=== PATIENT | female | born 1955 | race Caucasian/White ===

== ENCOUNTER 2017-01-28 13:22 | Outpatient (CLI) | payer MEDICARE, OTHER ==
--- NOTE | 2017-01-29 07:16 | Mammography Report ---
DIGITAL BILATERAL SCREENING MAMMOGRAM: 01/28/2017 CLINICAL HISTORY: Family history indicates a cousin with breast cancer at age 45. Patient has no hi story of breast surgeries. COMPARISON: 09/01/2012, 09/09/2013, 10/04/2014, 10/20/2014, 10/24/2015. TECHNIQUE: Craniocaudad and oblique lateral views of each breast were obtained with Hologic Full Fie ld digital mammography. FINDINGS: Breast parenchymal pattern consists of scattered fibroglandular densities. No significant clusters of calcification are seen. No significant masses are noted. No change is no paul. IMPRESSION: BREASTS APPEAR RADIOGRAPHICALLY BENIGN. BIRADS CATEGORY 1 - NEGATIVE. RECOMMENDATIONS: Annual bilateral screening mammography. STANDARD QUALIFYING STATEMENTS 1. This examination was reviewed with the aid of Computer-Aided Detection (CAD). 2. A negative or benign imaging report should not delay biopsy if clinically suspicious findings are present. Consider surgical consultation if warranted. More than 5% of cancers are not identified by i maging. 3. Dense breasts may obscure an underlying neoplasm. JOB #: [id number] EXT JOB #:[id number]
== END 2017-01-28 13:23 | disposition home or self-care (01) ==
LOC: DI.N 13:22
PROVIDERS: ATTEND Obstetrics & Gynecology
DX: Z12.31 Encounter for screening mammogram for malignant neoplasm of breast (principal)
CPT/HCPCS: 77067

== ENCOUNTER 2018-03-10 13:33 | Outpatient (CLI) | payer MEDICARE, OTHER ==
--- NOTE | 2018-03-13 10:33 | Mammography Report ---
Procedure Date: 03/10/2018 Accession Number: [id number] / [id number] Procedure: MGN - Screening Mammo Dig Bilat CPT Code: FULL RESULT: EXAM: Screening Mammo Dig Bilat DATE: 03/10/2018 1:54 PM CLINICAL HISTORY: 62 year-old nulliparous female with family history of breast cancer in a cousin at the age of 45 presents for screening mammography. TECHNIQUE: Bilateral CC and MLO views were obtained. COMPARISON: 01/28/2017, 10/24/2015, 10/04/2014, 09/09/2013. FINDINGS: The breasts demonstrate scattered fibroglandular densities bilaterally. Typically benign vascular calcifications are seen bilaterally. Typically benign large rodlike calcifications are seen in the right breast. Typically benign coarse calcifications are seen in the left breast. No suspicious masses, clustered microcalcifications, or regions of architectural distortion are identified. IMPRESSION: Benign findings RECOMMENDATION: Routine annual screening unless otherwise clinically indicated. BIRADS CATEGORY 2: Benign findings STANDARD QUALIFYING STATEMENTS: 1. This examination was reviewed with the aid of Computer-Aided Detection (CAD). 2. A negative or benign imaging report should not delay biopsy if clinically suspicious findings are present. Consider surgical consultation if warrented. More than 5% of cancers are not identified by imaging. 3. Dense breasts may obscure an underlying neoplasm.
== END 2018-03-10 13:34 | disposition home or self-care (01) ==
LOC: DI.N 13:33
PROVIDERS: ATTEND Obstetrics & Gynecology
DX: Z12.31 Encounter for screening mammogram for malignant neoplasm of breast (principal); Z80.3 Family history of malignant neoplasm of breast
CPT/HCPCS: 77067

== ENCOUNTER 2018-03-25 15:36 | Emergency (ER) | payer MEDICARE, OTHER ==
--- NOTE | 2018-03-25 16:56 | ED Physician Documentation ---
PD HPI FOCAL NEURO - Stated complaint Stated Complaint: VISION CHANGE,FACE NUMBNESS,R HAND NUMB,UNSTEADY - Chief complaint Chief Complaint: Neuro - History obtained from History obtained from: Patient, Family - History of Present Illness Timing - onset: Other (This is a 62-year-old woman who is 11 years out from renal transplant and has chronic issues with her central vision due to diabetic retinopathy. For the last several months she has had intermittent problems with her right peripheral vision. And then for the last couple of weeks she has had intermittent numbness in the right perioral area and for the last week or so she has had intermittent numbness of the right hand and feels clumsy with the right hand. There is no significant headache with it.) Review of Systems Constitutional: denies: Fever, Chills Eyes: reports: Loss of vision (chronic and acute). 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 : None HEENT: Chronic vision loss Psych: None Musculoskeletal: None Derm: Rosacea, Other - Past Surgical History Past Surgical History: Yes HEENT: Tonsil/Adenoidectomy - Allergies Allergies/Adverse Reactions: Allergies Allergy/AdvReac Type Severity Reaction Status Date / Time No Known Drug Allergies Allergy Verified 03/25/18 15:52 - Social History Does the pt smoke?: No Smoking Status: Never smoker Does the pt drink ETOH?: No Does the pt have substance abuse?: No - Immunizations Immunizations are current?: Yes PD ED PE NORMAL - Vitals Vital signs reviewed: Yes - General General: Alert and oriented X 3, No acute distress - HEENT HEENT: PERRL, EOMI - Neck Neck: Supple, no meningeal sign, No bony TTP - Cardiac Cardiac: RRR, No murmur - Respiratory Respiratory: No respiratory distress, Clear bilaterally - Abdomen Abdomen: Normal bowel sounds, Soft, Non tender - Neuro Neuro: Alert and oriented X 3, Normal speech - Psych Psych: Normal mood, Normal affect NIHSS - Time Time: 16:45 - Level of Consciousness Level of consciousness: (0) Alert, Keenly responsive LOC Questions: (0) Answers both Q's correct LOC Commands: (0) Performs both correctly - Gaze Best Gaze: (0) Normal - Visual Visual: (0) No loss - Facial Palsy Facial Palsy: (0) Normal, symmetrical movement - Motor Arms (both separate) Motor Arm (right): (0) No drift Motor Arm (left): (0) No drift - Motor Legs (both separate) Motor Leg (right): (0) No drift Motor Leg (left): (0) No drift - Limb Ataxia Limb Ataxia: (0) Absent (She also has a lot of trouble with finger to nose testing due to her poor central vision, but on recheck out and touching her nose she does fine.) - Sensory Sensory: (0) Normal - Best Language Best Language: (0) No aphasia - Dysarthria Dysarthria: (0) Normal - Extinction and Inattention (formally neg Extinction and inattention: (0) No abnormality - Total Score/Results Total Score/Result: 0 Results - Vitals Vitals: Vital Signs - 24 hr 03/25/18 15:47 Temperature 36.3 C L Heart Rate 85 Respiratory 16 Rate Blood Pressure 148/75 H O2 Saturation 100 Oxygen O2 Source Room air - Rads (name of study) CT Head Radiology: EMP read contemporaneously (Normal) PD MEDICAL DECISION MAKING - ED course ED course: She presents with subacute strokelike symptoms. No MRI available now, but since symptoms are subacute a CT was done and I spoke with Dr. Medina environmental services supervisor for his physician who will arrange for her to schedule an outpatient MRI. - Sepsis Event Vital Signs: Vital Signs - 24 hr 03/25/18 15:47 Temperature 36.3 C L Heart Rate 85 Respiratory 16 Rate Blood Pressure 148/75 H O2 Saturation 100 Oxygen O2 Source Room air Departure - Departure Disposition: 01 Home, Self Care Clinical Impression: Stroke-like symptoms Hypertension Qualifiers: Hypertension type: essential hypertension Qualified Code(s): I10 - Essential ( primary) hypertension Condition: Good Record reviewed to determine appropriate education?: Yes Comments: KATIE I SPOKE WITH DR MEDINA- DR SONI'S PARTNER, THEY SHOULD BE CONTACTING YOU TO ARRANGE FOR MRI RETURN IF WORSE OR FOR NEW SYMPTOMS.
--- NOTE | 2018-03-25 17:28 | CT Report ---
Procedure Date: 03/25/2018 Accession Number: [id number] / [id number] Procedure: CT - Head W/O CPT Code: FULL RESULT: EXAM: CT HEAD EXAM DATE: 03/25/2018 05:10 PM. CLINICAL HISTORY: Right-sided facial and arm numbness. COMPARISON: None. TECHNIQUE: Multiaxial CT images were obtained from the foramen magnum to the vertex. Reformats: Sagittal and coronal. IV contrast: None. In accordance with CT protocol optimization, one or more of the following dose reduction techniques were utilized for this exam: automated exposure control, adjustment of mA and/or KV based on patient size, or use of iterative reconstructive technique. FINDINGS: Parenchyma: No intraparenchymal hemorrhage. No evidence of mass, midline shift, or CT findings of infarction. Harris-white differentiation is distinct. Extraaxial Spaces: Normal for age. No subdural or epidural collections identified. Ventricles: Normal in size and position. Sinuses and Orbits: Imaged paranasal sinuses, orbits, and mastoids show no significant abnormality. Bones: No evidence of fracture or calvarial defect. Other: None. IMPRESSION: Normal head CT. RADIA
[2018-03-25 17:58] VITALS: BP 140/80
== END 2018-03-25 17:57 | disposition home or self-care (01) ==
LOC: ED 15:36
DX: I10 Essential (primary) hypertension (principal); R20.0 Anesthesia of skin; E11.319 Type 2 diabetes mellitus with unspecified diabetic retinopathy without macular edema; Z94.0 Kidney transplant status
CPT/HCPCS: 70450; 99283

== ENCOUNTER 2018-05-12 12:53 | Outpatient (CLI) | payer MEDICARE, OTHER ==
--- NOTE | 2018-05-13 10:02 | Ultrasound Report ---
Reason: TRANSIENT ISCHEMIC ATTACH Procedure Date: 05/12/2018 Accession Number: [id number] / [id number] Procedure: US - Carotid Doppler Complete CPT Code: FULL RESULT: EXAM: BILATERAL CAROTID AND VERTEBRAL ARTERY DUPLEX DOPPLER ULTRASOUND: EXAM DATE: 05/12/2018 02:38 PM CLINICAL HISTORY: Transient ischemic attach. COMPARISON: None. TECHNIQUE: Grayscale imaging, color Doppler, and duplex spectral Doppler were used to evaluate the carotid and vertebral arteries bilaterally. Static images were obtained. FINDINGS: Subjectively there is echogenic atherosclerosis within the left internal carotid artery and bulb which reaches up to 70% on grayscale matching the finding of a 2.5 ICA/CCA ratio and corroborated on color Doppler. The right carotid system similarly demonstrates an elevated ICA/CCA ratio of 3.1 with subjective grayscale findings of focal echogenic plaque reaching approximately 50% and in line with the visual assessment on color Doppler. Brisk systolic upstrokes are preserved in the distal internal carotid arteries bilaterally. Normal antegrade flow is present in bilateral vertebral arteries. VELOCITIES (cm/sec): Right CCA mid: PSV 52 cm/sec CCA dist: PSV 48 cm/sec ICA prox: PSV 141 cm/sec, EDV 34 cm/sec ICA mid: PSV 149 cm/sec, EDV 32 cm/sec ICA dist: PSV 99 cm/sec, EDV 28 cm/sec ECA: PSV 441 cm/sec Vert: PSV 58 cm/sec ICA/CCA: 3.10 Left CCA mid: PSV 86 cm/sec CCA dist: PSV 64 cm/sec ICA prox: PSV 160 cm/sec, EDV 44 cm/sec ICA mid: PSV 94 cm/sec, EDV 20 cm/sec ICA dist: PSV 100 cm/sec, EDV 24 cm/sec ECA: PSV 198 cm/sec Vert: PSV 54 cm/sec ICA/CCA: 2.5 ICA diameter stenosis: Right: 50-69% by velocity and <70% by NASCET criteria. Left: 50-69% by velocity and <70% by NASCET criteria. IMPRESSION: 1. Subjectively significant predominantly echogenic bilateral carotid artery plaquing. 2. Right carotid artery stenosis of between 50 and 69%. 3. Left carotid artery stenosis of between 50 and 69%. 4. Normal antegrade flow is present in bilateral vertebral arteries. General Recommendations: Stenosis =50% ICA - Follow-up ultrasound 6-12 months Stenosis <50% ICA - High Risk Patient with plaque - Follow-up ultrasound 1-2 years Normal Study but High Risk Patient - Follow-up ultrasound 3-5 years Management recommendations and diagnostic criteria are based on current IAC endorsed standards in Carotid Artery Stenosis: Grayscale and Doppler Ultrasound Diagnosis. Validated velocity measurements with angiographic measurements and velocity criteria are extrapolated from diameter data as defined by the Society of Radiologists in Ultrasound Consensus Conference Radiology 2003; 229;340-346. RADIA
== END 2018-05-12 12:54 | disposition home or self-care (01) ==
LOC: DI 12:53
PROVIDERS: ATTEND Internal Medicine Nephrology
DX: G45.9 Transient cerebral ischemic attack, unspecified (principal)
CPT/HCPCS: 93880

== ENCOUNTER 2018-06-03 10:10 | Outpatient (CLI) | payer MEDICARE, OTHER ==
[2018-06-03 10:38] LABS: CREATININE 2.5 mg/dL (0.4-1.0)
== END 2018-06-03 10:11 | disposition home or self-care (01) ==
LOC: LAB 10:10
PROVIDERS: ATTEND Internal Medicine Nephrology
DX: N05.9 Unspecified nephritic syndrome with unspecified morphologic changes (principal)
CPT/HCPCS: 36415; 82565

== ENCOUNTER 2018-07-01 13:15 | Outpatient (CLI) | payer MEDICARE, OTHER ==
--- NOTE | 2018-07-03 08:11 | DEXA Report ---
Reason: POSTMENOPAUSAL Procedure Date: 07/01/2018 Accession Number: [id number] / [id number] Procedure: DEX - Dexa Spine and/or Hip CPT Code: FULL RESULT: EXAM: Dexa Spine and/or Hip DATE: 07/01/2018 2:16 PM CLINICAL HISTORY: POSTMENOPAUSAL TECHNIQUE: Dual energy x-ray absorptiometry (DXA) was performed on a Synerscope System. Regions measured are the AP Spine, femoral neck, and if needed forearm. COMPARISON: None. In accordance with the International Society for Clinical Densitometry (ISCD) guidelines, data from previous exams may be reanalyzed using current recommendations and techniques. This is done to allow a more accurate basis for comparison with the current study. FINDINGS: The data for the lumbar spine is as follows: BMD (g/cm/cm) T-SCORE Z-SCORE REGION L1 0.840 -2.4 -1.3 L2 1.043 -1.3 -0.2 L3 1.055 -1.2 -0.1 L4 0.999 -1.7 -0.5 TOTAL 0.990 -1.6 -0.4 NOTE: All evaluable vertebrae are used for classification The data for the hip is as follows: BMD (g/cm/cm) T-SCORE Z-SCORE REGION Neck 0.696 -2.5 -1.3 TOTAL 0.768 -1.9 -1.0 NOTE: The femoral neck or total proximal femur, whichever is lowest, is used for classification. * Denotes significant change at the 95% confidence level. Denotes dissimilar scan types or analysis methods. IMPRESSION: THE WHO CLASSIFICATION BASED ON THE INTERNATIONAL REFERENCE STANDARD IS OSTEOPOROSIS. THE FRACTURE RISK IS HIGH. RECOMMENDATION: Patients with diagnosis of osteoporosis or osteopenia should have regular bone mineral density assessment. For those eligible for Medicare, routine testing is allowed once every 2 years. Testing frequency can be increased for patients who have rapidly progressing disease or for those who are receiving medical therapy to restore bone mass. COMMENT: World Health Organization (WHO) definitions for osteoporosis and osteopenia: NORMAL BMD: T-score at -1.0 or higher, fracture risk is low OSTEOPENIA BMD: T-score between -1.0 and -2.5, fracture risk is increased. OSTEOPOROSIS BMD: T-score at -2.5 or lower, fracture risk is high. National Osteoporosis Foundation recommends: 1. Obtain adequate dietary calcium (at least 1200 mg per day) and vitamin D (400-800 international units per day). 2. Participate, as appropriate, in regular weightbearing and muscle-strengthening exercise. 3. Avoid tobacco use and reduce alcohol and caffeine intake. 4. For more detailed information see the website at www.NOF.org.
== END 2018-07-01 13:16 | disposition home or self-care (01) ==
LOC: DI 13:15
PROVIDERS: ATTEND Internal Medicine
DX: Z13.820 Encounter for screening for osteoporosis (principal); M81.0 Age-related osteoporosis without current pathological fracture; N95.8 Other specified menopausal and perimenopausal disorders; Z79.52 Long term (current) use of systemic steroids
CPT/HCPCS: 77080

== ENCOUNTER 2018-07-10 13:35 | Outpatient (CLI) | payer MEDICARE, OTHER | END 2018-07-10 13:36 | disposition home or self-care (01) | LOC: NS 13:35 | PROVIDERS: ATTEND Internal Medicine | DX: Z71.3 Dietary counseling and surveillance (principal); E11.40 Type 2 diabetes mellitus with diabetic neuropathy, unspecified | CPT/HCPCS: 97802 ==

== ENCOUNTER 2018-07-16 16:20 | Outpatient (CLI) | payer MEDICARE, OTHER | END 2018-07-16 23:59 | LOC: RT 16:20 | PROVIDERS: ATTEND Internal Medicine Cardiovascular Disease | DX: Z01.810 Encounter for preprocedural cardiovascular examination (principal) | CPT/HCPCS: 93005 ==

== ENCOUNTER 2018-07-24 12:38 | Outpatient (CLI) | payer MEDICARE, OTHER | END 2018-07-24 12:39 | disposition home or self-care (01) | LOC: DI 12:38 | PROVIDERS: ATTEND Internal Medicine Cardiovascular Disease | DX: Z01.810 Encounter for preprocedural cardiovascular examination (principal); I10 Essential (primary) hypertension; G45.9 Transient cerebral ischemic attack, unspecified | CPT/HCPCS: 93306 ==

== ENCOUNTER 2019-06-15 14:33 | Outpatient (CLI) | payer MEDICARE, OTHER ==
--- NOTE | 2019-06-16 09:03 | Mammography Report ---
Reason: screening mammo Procedure Date: 06/15/2019 Accession Number: [id number] / [id number] Procedure: MGN - Screening Mammo Dig Bilat CPT Code: Final Report FULL RESULT: EXAM: Screening Mammo Dig Bilat DATE: 06/15/2019 3:00 PM CLINICAL HISTORY: Screening encounter. History of nulliparity. TECHNIQUE: (B) - Bilateral CC and MLO views were obtained. COMPARISON: 03/10/2018 through 09/01/2012. PARENCHYMAL PATTERN: (A) - The breast(s) demonstrate(s) scattered fibroglandular densities. FINDINGS: There are typically benign vascular calcifications as well as long-standing stable right-sided large rodlike calcifications, probably benign. There are no suspicious masses, calcifications, or areas of distortion. IMPRESSION: Benign findings. BI-RADS category 2. RECOMMENDATION: (ANNUAL) - Recommend routine annual screening mammography. BI-RADS CATEGORY: (2) - Benign Findings. STANDARD QUALIFYING STATEMENTS: 1. This examination was not reviewed with the aid of Computer-Aided Detection (CAD). 2. A negative or benign imaging report should not preclude biopsy if clinically suspicious findings are present. 3. Dense breasts may obscure an underlying neoplasm. 4. This examination was reviewed without the aid of 3D breast imaging (tomosynthesis).
== END 2019-06-15 14:34 | disposition home or self-care (01) ==
LOC: DI.N 14:33
PROVIDERS: ATTEND Internal Medicine
DX: Z12.31 Encounter for screening mammogram for malignant neoplasm of breast (principal)
CPT/HCPCS: 77067

== ENCOUNTER 2019-09-27 08:32 | Outpatient (CLI) | payer MEDICARE, OTHER ==
[2019-09-27 09:03] LABS: BASOPHILS # (AUTO) 0.1 10^3/uL (0.0-0.1); BASOPHILS % (AUTO) 1.8 %; EOSINOPHILS # (AUTO) 0.4 10^3/uL (0.0-0.7); EOSINOPHILS % (AUTO) 6.6 %; HGB - HEMOGLOBIN 11.6 g/dL (12.0-16.0); LYMPHOCYTES % (AUTO) 18.4 %; MEAN CORPUSCULAR HEMOGLOBIN 30.9 pg (27.0-31.0); MEAN CORPUSCULAR HGB CONC 32.3 g/dL (32.0-36.0); MEAN CORPUSCULAR VOLUME 95.7 fL (81.0-99.0); MEAN PLATELET VOLUME 9.8 fL (7.9-10.8); MONOCYTES # (AUTO) 1.4 10^3/uL (0.0-1.0); NEUTROPHILS # (AUTO) 2.4 10^3/uL (1.5-6.6); NEUTROPHILS % (AUTO) 44.3 %; PLT - PLATELET COUNT 247 10^3/uL (130-450); RED BLOOD COUNT 3.75 10^6/uL (4.20-5.40); RED CELL DISTRIBUTION WIDTH 13.7 % (12.0-15.0); WHITE BLOOD COUNT 5.4 x10^3/uL (4.8-10.8)
[2019-09-27 09:15] LABS: CALCIUM 9.4 mg/dL (8.5-10.3); CREATININE 2.3 mg/dL (0.4-1.0)
[2019-09-27 09:31] LABS: RBC MORPHOLOGY (MULTIPLE) 2+ ANISOCYTOSIS (NORMAL)
== END 2019-09-27 08:33 | disposition home or self-care (01) ==
LOC: LAB 08:32
PROVIDERS: ATTEND Internal Medicine Nephrology
DX: N05.9 Unspecified nephritic syndrome with unspecified morphologic changes (principal); D70.9 Neutropenia, unspecified; D63.1 Anemia in chronic kidney disease; N18.9 Chronic kidney disease, unspecified
CPT/HCPCS: 36415; 80048; 85025

== ENCOUNTER 2020-07-19 13:10 | Outpatient (CLI) | payer MEDICARE, OTHER ==
--- NOTE | 2020-07-20 09:05 | Mammography Report ---
BILATERAL DIGITAL SCREENING MAMMOGRAM 3D/2D: 07/19/2020 CLINICAL: Routine screening. Comparison is made to exams dated: 06/15/2019 mammogram, 03/10/2018 mammogram, 01/28/2017 mammogram, mammogram, 10/20/2014 mammogram, and 10/04/2014 mammogram - [facility]. Ther e are scattered fibroglandular elements in both breasts. There is a possible new 0.4 cm oval focal asymmetry in the right breast at 1 o'clock middle depth. No other significant masses, calcifications, or other findings are seen in either breast. IMPRESSION: INCOMPLETE: NEEDS ADDITIONAL IMAGING EVALUATION The possible new 0.4 cm oval focal asymmetry in the right breast is indeterminate. Additional views with possible ultrasound are recommended. This exam was interpreted at Station ID: [id number]. NOTE: For mammograms, a report in lay terms will be sent to the patient. Approximately 15% of breast malignancies will not be visualized mammographically. In the management of a palpable breast mass, a negative mammogram must not discourage biopsy of a clinically suspicious lesion. Electronically Signed By: Ming Hong M.D. [email or web address]/adi:07/19/2020 18:42:55 ACR BI-RADS Category 0: Incomplete 3340F PARENCHYMAL PATTERN: (A) - The breast(s) demonstrate(s) scattered fibroglandular densities. BI-RADS CATEGORY: (0) - 0 Mammo and [place] [id number] Immediate follow-up LATERALITY: (R)
== END 2020-07-19 13:11 | disposition home or self-care (01) ==
LOC: DI.N 13:10
DX: Z12.31 Encounter for screening mammogram for malignant neoplasm of breast (principal); R92.8 Other abnormal and inconclusive findings on diagnostic imaging of breast

== ENCOUNTER 2020-07-19 14:00 | Emergency (ER) | payer MEDICARE, OTHER ==
--- NOTE | 2020-07-19 14:29 | XRAY Report ---
PROCEDURE: Chest 1 View X-Ray INDICATIONS: Chest pain TECHNIQUE: One view of the chest was acquired. COMPARISON: 06/11/2016 FINDINGS: Surgical changes and devices: None. Lungs and pleura: No pleural effusions or pneumothorax. Lungs are clear. Mediastinum: Mediastinal contours appear normal. Heart size is normal. Bones and chest wall: No suspicious bony lesions. Overlying soft tissues appear unremarkable. IMPRESSION: No acute cardiopulmonary disease process. Reviewed by: Екатерина Pop MD, PhD on 07/19/2020 2:28 PM PST Approved by: Екатерина Pop MD, PhD on 07/19/2020 2:28 PM PST Station ID: [id number]
--- NOTE | 2020-07-19 14:35 | ED Physician Documentation ---
History of Present Illness - Stated complaint Stated Complaint: HEARTBURN,NAUSEA,DIZZY - Chief complaint Chief Complaint: Cardiac - History obtained from History obtained from: Patient - Additonal information Additional information: 65-year-old female who has a history of hypertension, diabetes mellitus as well as chronic kidney failure status post renal transplant in 2006, comes to the emergency department with a chief complaint that for about 2 weeks she has been having a burning sensation in her stomach that radiates up into her throat. She did present to the walk-in clinic for evaluation of the symptoms but they recommended evaluation here in the emergency department She also reports that for about 4 months she has been having generalized weakness. She reports persistent nausea but no vomiting. She reports that at baseline she has chronic abdominal pain and no new symptoms related to that. She denies that she has any coronary artery disease history. She is a former smoker. She does have some baseline dyspnea which is not new. She denies that she develops chest pain or pressure when she ambulates. Primary care provider is Dr. Vinay khan at [facility]. She is fo llowed closely by [facility] renal transplant. She is currently inactive on the list as her last GFR was greater than 14. She is on multiple immune- suppressants Review of Systems Constitutional: denies: Fever, Chills Eyes: reports: Reviewed and negative Ears: reports: Reviewed and negative Nose: reports: Reviewed and negative Throat: reports: Other (Sour burning sensation in throat). denies: Oral lesions / sores Cardiac: reports: Pedal edema. denies: Chest pain / pressure, Palpitations, Calf pain Respiratory: reports: Dyspnea. denies: Cough GI: reports: Abdominal Pain, Nausea. denies: Vomiting, Constipation, Diarrhea, Hematemesis : reports: Other (Chronic kidney disease status post renal transplant 2006). denies: Dysuria, Frequency, Hesitancy Skin: reports: Reviewed and negative PD PAST MEDICAL HISTORY - Past Medical History Cardiovascular: None, Hypertension, High cholesterol Respiratory: None Endocrine/Autoimmune: Type 2 diabetes, HyPOthyroidism GI: None WASTE RECYCLER: None : None HEENT: Chronic vision loss Psych: None Musculoskeletal: None Derm: Rosacea, Other - Past Surgical History Past Surgical History: Yes HEENT: Tonsil/Adenoidectomy - Present Medications Home Medications: Ambulatory Orders Medication Instructions Recorded Confirmed Acetaminophen 1,000 mg PO PRN PRN 08/17/18 07/19/20 Acyclovir 200 mg PO DAILY 08/17/18 07/19/20 Amlodipine Besylate 2.5 mg PO DAILY 08/17/18 07/19/20 Amoxicillin 2,000 mg PO PRN PRN 08/17/18 07/19/20 Aspirin [Adult Aspirin Regimen] 81 mg PO DAILY 08/17/18 07/19/20 Azelaic Acid [Finacea] 50 gm TP DAILY PM 08/17/18 07/19/20 Clobetasol Propionate/Emoll 15 gm TOP PRN PRN 08/17/18 07/19/20 [Clobetasol Emollient 0.05% Crm] Clocortolone Pivalate 45 gm TP PRN PRN 08/17/18 07/19/20 Fexofenadine HCl [Jaylin Allergy] 180 mg PO DAILY 08/17/18 07/19/20 Furosemide 20 mg PO PRN PRN 08/17/18 07/19/20 Glipizide 2.5 mg PO DAILY 08/17/18 07/19/20 Lactulose 20 gm PO PRN PRN 08/17/18 07/19/20 Levothyroxine Sodium [Synthroid] 50 mcg PO DAILY 08/17/18 07/19/20 Liraglutide [Victoza 2-Viktor] 1.8 mg SQ DAILY 08/17/18 07/19/20 Mycophenolate Mofetil [Cellcept] 75 mg PO BID 08/17/18 07/19/20 Permethrin 5% Cream 60 g TOP PRN PRN 08/17/18 07/19/20 Pravastatin [Pravachol] 80 mg PO DAILY PM 08/17/18 07/19/20 Carvedilol [Coreg] 6.25 mg PO DAILY 07/19/20 07/19/20 Omeprazole 20 mg PO DAILY #14 capsule. 07/19/20 cycloSPORINE, MODIFIED [Gengraf] 25 mg PO TID 07/19/20 07/19/20 - Allergies Allergies/Adverse Reactions: Allergies Allergy/AdvReac Type Severity Reaction Status Date / Time No Known Drug Allergies Allergy Verified 07/19/20 15:27 - Social History Does the pt smoke?: No Smoking Status: Never smoker Does the pt drink ETOH?: No Does the pt have substance abuse?: No - Immunizations Immunizations are current?: Yes PD ED PE EXPANDED - General General: Alert, No acute distress - Cardiac Cardiac: Regular Rate, Regular Rhythm, Radial strong equal, Pedal strong equal, Cap refill < 2 sec. No: Murmur Present - Respiratory Respiratory: Clear to ausultation fouzia. No: Distress, Labored - Abdomen Abdomen: Normal Bowel sounds, Generalized/diffuse (Generally tender abdomen at baseline. Patient reports that the symptoms are not new. She does not have guarding or rebound.) - Derm Derm: Normal color. No: Rash, Petecchiae, Purpura - Extremities Extremities: Normal. No: Deformity, Tenderness - Neuro Neuro: Alert and Oriented X 3, CNII-XII intact. No: Confused, Disoriented - GCS Eye Opening: Spontaneous Motor: Obeys Commands Verbal: Oriented Total: 15 Results - Vitals Vitals: Vital Signs - 24 hr 07/19/20 07/19/20 07/19/20 14:08 14:35 15:25 Temperature 36.7 C 36.8 C Heart Rate 73 75 73 Respiratory 14 20 18 Rate Blood Pressure 140/76 H 182/84 H 147/71 H O2 Saturation 100 100 98 07/19/20 16:05 Temperature Heart Rate 71 Respiratory 15 Rate Blood Pressure 143/72 H O2 Saturation 99 Oxygen O2 Source Room air - EKG (time done) 1422 Rate: Rate (enter#) (71) Rhythm: NSR [place]: LAD (borderline) Intervals: Normal [place] QRS: Normal Ischemia: Normal ST segments Compare to prior EKG: Unchanged from prior EKG Computer interpretation: Agree with computer - Labs Labs: Laboratory Tests 07/19/20 07/19/20 07/19/20 14:35 14:35 14:35 WBC 6.7 RBC 4.11 L Hgb 12.6 Hct 38.4 MCV 93.4 MCH 30.7 MCHC 32.8 RDW 13.0 Plt Count 342 MPV 9.6 Neut # (Auto) 4.7 Lymph # (Auto) 1.1 L [place] # (Auto) 0.7 Eos # (Auto) 0.3 Baso # (Auto) 0.1 Absolute Nucleated RBC 0.00 Nucleated RBC % 0.0 Sodium 134 L Potassium 4.8 Chloride 102 Carbon Dioxide 22 Anion Gap 10.0 BUN 42 H Creatinine 2.4 H Estimated GFR (MDRD) 20 L Glucose 211 H Calcium 9.4 Total Bilirubin 0.8 AST 24 ALT 23 Alkaline Phosphatase 83 Troponin I High Sens 9.4 Total Protein 7.9 Albumin 4.1 Globulin 3.8 Albumin/Globulin Ratio 1.1 Lipase 44 TSH Urine Color Urine Clarity Urine pH Ur Specific [place] Urine Protein Urine Glucose (UA) Urine Ketones Urine Occult Blood Urine Nitrite Urine Bilirubin Urine Urobilinogen Ur Leukocyte Esterase Urine RBC Urine WBC Ur Squamous Epith Cells Urine Bacteria Ur Microscopic Review Urine Culture Comments Nasal Adenovirus (PCR) Nasal B. parapertussis DNA (PCR) Nasal Coronavir 229E PCR Nasal Coronavir HKU1 PCR Nasal Coronavir NL63 PCR Nasal Coronavir OC43 PCR Nasal Enterovir/Rhinovir PCR Nasal Influenza B PCR Nasal Influenza A PCR Nasal Parainfluen 1 PCR Nasal Parainfluen 2 PCR Nasal Parainfluen 3 PCR Nasal Parainfluen 4 PCR Nasal RSV (PCR) Nasal B.pertussis DNA PCR Nasal C.pneumoniae (PCR) Kings Human Metapneumo PCR Nasal M.pneumoniae (PCR) Nasal SARS-CoV-2 (PCR) 07/19/20 07/19/20 07/19/20 14:35 14:49 14:52 WBC RBC Hgb Hct MCV MCH MCHC RDW Plt Count MPV Neut # (Auto) Lymph # (Auto) [place] # (Auto) Eos # (Auto) Baso # (Auto) Absolute Nucleated RBC Nucleated RBC % Sodium Potassium Chloride Carbon Dioxide Anion Gap BUN Creatinine Estimated GFR (MDRD) Glucose Calcium Total Bilirubin AST ALT Alkaline Phosphatase Troponin I High Sens Total Protein Albumin Globulin Albumin/Globulin Ratio Lipase TSH 1.46 Urine Color YELLOW Urine Clarity CLEAR Urine pH 6.0 Ur Specific [place] 1.015 Urine Protein 30 H Urine Glucose (UA) NEGATIVE Urine Ketones NEGATIVE Urine Occult Blood NEGATIVE Urine Nitrite NEGATIVE Urine Bilirubin NEGATIVE Urine Urobilinogen 0.2 (NORMAL) Ur Leukocyte Esterase NEGATIVE Urine RBC None Seen Urine WBC 0-3 Ur Squamous Epith Cells FEW Squamous Urine Bacteria None Seen Ur Microscopic Review INDICATED Urine Culture Comments NOT INDICATED Nasal Adenovirus (PCR) NOT DETECTED Nasal B. parapertussis DNA (PCR) NOT DETECTED Nasal Coronavir 229E PCR NOT DETECTED Nasal Coronavir HKU1 PCR NOT DETECTED Nasal Coronavir NL63 PCR NOT DETECTED Nasal Coronavir OC43 PCR NOT DETECTED Nasal Enterovir/Rhinovir PCR NOT DETECTED Nasal Influenza B PCR NOT DETECTED Nasal Influenza A PCR NOT DETECTED Nasal Parainfluen 1 PCR NOT DETECTED Nasal Parainfluen 2 PCR NOT DETECTED Nasal Parainfluen 3 PCR NOT DETECTED Nasal Parainfluen 4 PCR NOT DETECTED Nasal RSV (PCR) NOT DETECTED Nasal B.pertussis DNA PCR NOT DETECTED Nasal C.pneumoniae (PCR) NOT DETECTED Kings Human Metapneumo PCR NOT DETECTED Nasal M.pneumoniae (PCR) NOT DETECTED Nasal SARS-CoV-2 (PCR) NOT DETECTED - Rads (name of study) CXR Radiology: Final report received (No acute cardiopulmonary process) PD MEDICAL DECISION MAKING - ED course Complexity details: reviewed results, re-evaluated patient, considered differential, d/w patient ED course: 65-year-old female has a history of diabetes as well as chronic kidney disease status post renal transplant in 2006 presents the emergency department with 2 weeks of epigastric abdominal pain that radiates up into her throat. She was advised to come to the emergency department for an ME rule out by her primary care provider. However her primary care provider has referred her as an outpatient for cardiology echo and stress testing. Here in the emergency department she has a nonischemic EKG. High-sensitivity troponin is negative. Her renal function appears to be at baseline with a GFR just over 20 and a creatinine of 2.4. She continues to make urine. Urine shows no signs of infection. She was given some viscous lidocaine here in the emergency department with moderate relief of the epigastric pain. Her heart score is 3 indicating low risk for MACE in the next 30 days. She will be discharged home with a prescription for omeprazole to treat what I suspect is a gastritis/GERD. Given the reported fatigue for a number of months Covid testing was completed and is negative. Her fatigue is likely stemming from chronic kidney disease and diabetes. Her TSH was normal Emergent return precautions discussed Departure - Departure Disposition: 01 Home, Self Care Clinical Impression: Fatigue Qualifiers: Fatigue type: unspecified Qualified Code(s): R53.83 - Other fatigue CKD (chronic kidney disease) Qualifiers: Chronic kidney disease stage: stage 4 (severe) Qualified Code(s): N18.4 - Chronic kidney disease, stage 4 (severe) GERD (gastroesophageal reflux disease) Qualifiers: Esophagitis presence: esophagitis presence not specified Qualified Code(s): K21.9 - Gastro-esophageal reflux disease without esophagitis Condition: Stable Record reviewed to determine appropriate education?: Yes Follow-Up: Barber Mclean MD [Primary Care Provider] - Prescriptions: Omeprazole 20 mg PO DAILY #14 capsule. Comments: Josi today you were seen in the emergency department for abdominal pain. Your EKG was essentially. Your high-sensitivity troponin was also normal. It does not appear that you are having a heart attack. However you are at moderate risk for heart disease given your age and your medical history. Please continue to follow-up with the echocardiogram and the stress test ordered by your primary care provider. I think the most likely cause of your symptoms however is acid reflux. I would like you to start taking the omeprazole every day for the next 2 weeks. Please avoid eating 2 hours before going to bed and attempt to sleep upright on 2-3 pillows. If at any point you develop fevers, have shortness of air, feel that your symptoms are not improving please return immediately to the ER
[2020-07-19 14:47] LABS: BASOPHILS # (AUTO) 0.1 10^3/uL (0.0-0.1); BASOPHILS % (AUTO) 0.9 %; EOSINOPHILS # (AUTO) 0.3 10^3/uL (0.0-0.7); EOSINOPHILS % (AUTO) 3.7 %; HGB - HEMOGLOBIN 12.6 g/dL (12.0-16.0); LYMPHOCYTES # (AUTO) 1.1 10^3/uL (1.5-3.5); LYMPHOCYTES % (AUTO) 15.8 %; MEAN CORPUSCULAR HEMOGLOBIN 30.7 pg (27.0-31.0); MEAN CORPUSCULAR HGB CONC 32.8 g/dL (32.0-36.0); MEAN CORPUSCULAR VOLUME 93.4 fL (81.0-99.0); MEAN PLATELET VOLUME 9.6 fL (7.9-10.8); MONOCYTES # (AUTO) 0.7 10^3/uL (0.0-1.0); MONOCYTES % (AUTO) 9.8 %; NEUTROPHILS # (AUTO) 4.7 10^3/uL (1.5-6.6); NEUTROPHILS % (AUTO) 69.5 %; PLT - PLATELET COUNT 342 10^3/uL (130-450); RED BLOOD COUNT 4.11 10^6/uL (4.20-5.40); WHITE BLOOD COUNT 6.7 x10^3/uL (4.8-10.8)
[2020-07-19 15:00] LABS: ALBUMIN 4.1 g/dL (3.2-5.5); ALBUMIN/GLOBULIN RATIO 1.1 (1.0-2.2); BILIRUBIN,TOTAL 0.8 mg/dL (0.2-1.0); CALCIUM 9.4 mg/dL (8.5-10.3); CREATININE 2.4 mg/dL (0.4-1.0); TOTAL PROTEIN 7.9 g/dL (6.7-8.2)
[2020-07-19 15:04] LABS: BILIRUBIN,URINE NEGATIVE (NEGATIVE); CLARITY,URINE CLEAR (CLEAR); GLUCOSE, URINE (UA) NEGATIVE (NEGATIVE); KETONES,URINE (UA) NEGATIVE (NEGATIVE); LEUKOCYTE ESTERASE, URINE NEGATIVE (NEGATIVE); NITRITE,URINE NEGATIVE (NEGATIVE); OCCULT BLOOD,URINE NEGATIVE (NEGATIVE); PROTEIN,URINE 30 mg/dL (NEGATIVE); UROBILINOGEN,URINE 0.2 (NORMAL) E.U./dL (NORMAL)
[2020-07-19 15:20] LABS: BACTERIA,URINE None Seen /HPF (None Seen); RBC,URINE None Seen /HPF (0-5); SQUAMOUS EPITHELIAL CELL,UR FEW Squamous (<= Few)
[2020-07-19] MEDS ORDERED: LIDOCAINE VISCOUS 2% 15 ML UDC MM STA (15:48)
[2020-07-19 16:04] LABS: C. PNEUMONIAE- RESP PCR PANEL NOT DETECTED
[2020-07-19 16:35] VITALS: BP 132/62
== END 2020-07-19 16:55 | disposition home or self-care (01) ==
LOC: ED 14:00
DX: K21.9 Gastro-esophageal reflux disease without esophagitis (principal); E11.22 Type 2 diabetes mellitus with diabetic chronic kidney disease; I12.0 Hypertensive chronic kidney disease with stage 5 chronic kidney disease or end stage renal disease; N18.4 Chronic kidney disease, stage 4 (severe); Z94.0 Kidney transplant status; Z79.84 Long term (current) use of oral hypoglycemic drugs; R53.83 Other fatigue
CPT/HCPCS: 0202U; 36415; 80053; 81001; 81003; 83690; 84443; 84484; 85025; 87086; 93005; 99284

== ENCOUNTER 2020-07-28 10:13 | Outpatient (CLI) | payer MEDICARE, OTHER | END 2020-07-28 10:14 | disposition home or self-care (01) | LOC: DI 10:13 | PROVIDERS: ATTEND Physician Assistant Medical | DX: R53.83 Other fatigue (principal); R42 Dizziness and giddiness; I12.9 Hypertensive chronic kidney disease with stage 1 through stage 4 chronic kidney disease, or unspecified chronic kidney disease | CPT/HCPCS: 93306 ==

== ENCOUNTER 2020-08-03 12:13 | Outpatient (CLI) | payer MEDICARE, OTHER ==
[2020-08-03] MEDS ORDERED: REGADENOSON 0.4 MG/5 ML SYRINGE IVP ONE ×2 (14:45→16:25)
[2020-08-03] MEDS ORDERED: AMINOPHYLLINE 500 MG/20 ML VIAL ONE (14:45)
--- NOTE | 2020-08-03 15:32 | CARDIAC PROCEDURE NOTE ---
DATE OF SERVICE: 08/03/2020 Physician: Li Dickey MD, [facility] INDICATION: Exertional fatigue, CKD, hypertension, dizziness. CARDIAC RISK FACTORS: Postmenopausal status, family history of heart disease, hyperlipidemia, diabetes, hypertension. The patient also has known peripheral vascular disease. PROCEDURE: After signing informed consent, the patient underwent a Lexiscan pharmaceutical stress test with nuclear myocardial perfusion imaging. RESTING HEART RATE: 73. PEAK HEART RATE: 86. RESTING BLOOD PRESSURE: 185/78. Peak blood pressure: 117/52. Lexiscan was infused per protocol. The patient had brief shortness of breath with a dry cough and nausea that spontaneously resolved. She had no chest pain. Oxygen saturation was 97-99% on room air throughout the test. RESTING EKG: Normal sinus rhythm, poor R-wave progression. EKG AT PEAK: No new ST segment or T-wave changes develop. SUMMARY: 1. Abnormal resting EKG. 2. No ischemic changes occur by EKG criteria during this pharmaceutical stress test. 3. Nuclear images reported separately and showed: Normal distribution of activity, no fixed or reversible defects. IMPRESSION: Normal stress test. cc: Beba Good PA-C TD: 08/03/2020 15:19 [facility]
--- NOTE | 2020-08-03 17:07 | Nuclear Medicine Report ---
PROCEDURE: Rest and exercise myocardial perfusion SPECT with gated imaging and ejection fraction INDICATIONS: EXERTIONAL FATIGUE, CKD, HTN RADIOPHARMACEUTICAL: 13.5 mCi Tc-99m Myoview IV at rest and 43.0 mCi Tc-99m Myoview IV at peak exerc ise. [id number] was performed. 0.4 mg Lexiscan was administered. TECHNIQUE: Radiopharmaceutical was injected at peak stress test, and also at rest. SPECT images wer e obtained. SPECT myocardial perfusion images were displayed in short axis, horizontal long axis, an d vertical long axis views. Gated images were reviewed using [employer] software. COMPARISON: None available. CARDIAC STRESS: Lexiscan stress test with 0.4 mg Lexiscan administered. Symptoms: Patient denied chest pain during exercise. EKG: No diagnostic EKG changes of ischemia; no ectopy. FINDINGS: Raw data: There is good myocardial labeling by radiotracer. No significant motion artifacts. Lung- to-heart ratio is (normal is less than 0.38 for tetrafosmin tracer). Left ventricle function: Gated images demonstrate normal left ventricle wall thickening. No segment al wall motion abnormality. No transient ischemic dilation; TID is 0.93 (normal less than 1.3). The left ventricle resting end-diastolic volume is 45 mL. Left ventricle stress ejection fraction is 87 %; normal values are above 45%. Myocardial perfusion: There is normal distribution of activity in the left and right ventricular kerry cardium. No fixed or reversible perfusion defects. IMPRESSION: 1. No stress perfusion defects to indicate ischemia. 2. No EKG changes definitive for ischemia. 3. Ejection fraction 87%. PQRS ATTESTATIONS: Measure 322 - Is this imaging test primarily performed on a low-risk surgery patient for preoperative evaluation within 30 days preceding their low-risk non-cardiac surgery? Low-risk surgery is defined as cardiac or myocardial infarction less than 1%, including (but not limited to) endoscopic pr ocedures, superficial procedures, cataract surgery, and excisional breast surgery: Answer: No Measure 323 - Is this imaging test performed primarily for the monitoring of an asymptomatic patient who had percutaneous coronary intervention on the visit date or within 2 years of the visit date? An swer: No Measure 324 - Is this imaging test performed primarily for the initial detection and risk assessment on an asymptomatic, low coronary heart disease patient? Low CHD risk definition = clinicians should consider the maximum number of available patient factors used to estimate risk based on [place] (A TP III criteria), typically age, gender, diabetes, smoking status, and use of blood pressure medicati on, and integrate age appropriate estimates for missing elements, such as LDL or standard blood press ure. Answer: No Reviewed by: Christy Sinclair MD on 08/03/2020 5:05 PM PST Approved by: Christy Sinclair MD on 08/03/2020 5:05 PM PST Station ID: [id number]
== END 2020-08-03 12:14 | disposition home or self-care (01) ==
LOC: DI 12:13
PROVIDERS: ATTEND Physician Assistant Medical
DX: R94.31 Abnormal electrocardiogram [ECG] [EKG] (principal); E78.5 Hyperlipidemia, unspecified; I73.9 Peripheral vascular disease, unspecified; E11.22 Type 2 diabetes mellitus with diabetic chronic kidney disease; I12.9 Hypertensive chronic kidney disease with stage 1 through stage 4 chronic kidney disease, or unspecified chronic kidney disease; N18.4 Chronic kidney disease, stage 4 (severe); Z78.0 Asymptomatic menopausal state; Z82.49 Family history of ischemic heart disease and other diseases of the circulatory system
CPT/HCPCS: 78452; 93017; A9500; J2785

== ENCOUNTER 2020-10-06 10:47 | Outpatient (CLI) | payer MEDICARE, OTHER ==
--- NOTE | 2020-10-09 09:30 | Mammography Report ---
UNILATERAL RIGHT DIGITAL DIAGNOSTIC MAMMOGRAM 3D/2D: 10/06/2020 CLINICAL: Additional evaluation requested from prior study. Patient returns today to evaluate an asym metry in the right breast. Comparison is made to exams dated: 07/19/2020 mammogram, 06/15/2019 mammogram, 03/10/2018 mammogram, an d 01/28/2017 mammogram - [facility]. There are scattered fibroglandular elements in right breast. The previously seen focal asymmetry in the right breast disperses on spot compression views, compatib le with normal fibroglandular breast tissue. No significant masses, calcifications, or other findings are seen in the breast. IMPRESSION: NEGATIVE There is no mammographic evidence of malignancy. A 1 year screening mammogram is recommended. This exam was interpreted at Station ID: [id number]. NOTE: For mammograms, a report in lay terms will be sent to the patient. Approximately 15% of breast malignancies will not be visualized mammographically. In the management of a palpable breast mass, a negative mammogram must not discourage biopsy of a clinically suspicious lesion. Electronically Signed By: Donovan reilly/adi:10/06/2020 11:42:44 ACR BI-RADS Category 1: Negative 3341F PARENCHYMAL PATTERN: (A) - The breast(s) demonstrate(s) scattered fibroglandular densities. BI-RADS CATEGORY: (1) - 1 RECOMMENDATION: (ANNUAL) - Recommend routine annual screening mammography. [id number] 1 year screening LATERALITY: (B)
== END 2020-10-06 10:48 | disposition home or self-care (01) ==
LOC: DI 10:47
PROVIDERS: ATTEND Internal Medicine
DX: R92.8 Other abnormal and inconclusive findings on diagnostic imaging of breast (principal)

== ENCOUNTER 2021-04-06 13:04 | Outpatient (CLI) | payer SELFPAY | END 2021-04-06 13:05 | disposition home or self-care (01) | LOC: LAB 13:04 | DX: Z01.89 Encounter for other specified special examinations (principal) | CPT/HCPCS: 36415 ==

== ENCOUNTER 2021-05-08 10:23 | Outpatient (CLI) | payer MEDICARE, OTHER | END 2021-05-08 10:24 | disposition home or self-care (01) | LOC: LAB 10:23 | DX: Z01.89 Encounter for other specified special examinations (principal) | CPT/HCPCS: 36415 ==

== ENCOUNTER 2021-07-09 11:24 | Outpatient (CLI) | payer MEDICARE, OTHER | END 2021-07-09 11:25 | disposition home or self-care (01) | LOC: LAB 11:24 | DX: Z01.89 Encounter for other specified special examinations (principal) | CPT/HCPCS: 36415 ==

== ENCOUNTER 2021-07-18 13:08 | Outpatient (CLI) | payer MEDICARE, OTHER ==
--- NOTE | 2021-07-25 14:21 | Mammography Report ---
BILATERAL DIGITAL SCREENING MAMMOGRAM 3D/2D: 07/18/2021 CLINICAL: Routine screening. Comparison is made to exams dated: 10/06/2020 mammogram, 07/19/2020 mammogram, 06/15/2019 mammogram, mammogram, 01/28/2017 mammogram, and 10/24/2015 mammogram - [facility]. Ther e are scattered fibroglandular elements in both breasts. No significant masses, calcifications, or other findings are seen in either breast. There has been no significant interval change. IMPRESSION: NEGATIVE There is no mammographic evidence of malignancy. A 1 year screening mammogram is recommended. Future imaging is recommended as follows: 10/07/2021 screening mammogram. This exam was interpreted at Station ID: [id number]. NOTE: For mammograms, a report in lay terms will be sent to the patient. Approximately 15% of breast malignancies will not be visualized mammographically. In the management of a palpable breast mass, a negative mammogram must not discourage biopsy of a clinically suspicious lesion. Electronically Signed By: Silvio Carmen M.D., jr/adi:07/24/2021 12:24:09 ACR BI-RADS Category 1: Negative 3341F PARENCHYMAL PATTERN: (A) - The breast(s) demonstrate(s) scattered fibroglandular densities. BI-RADS CATEGORY: (1) - 1 RECOMMENDATION: (ANNUAL) - Recommend routine annual screening mammography. [id number] 1 year screening LATERALITY: (B)
== END 2021-07-18 13:09 | disposition home or self-care (01) ==
LOC: DI.N 13:08
DX: Z12.31 Encounter for screening mammogram for malignant neoplasm of breast (principal)

== ENCOUNTER 2021-08-13 16:53 | Outpatient (CLI) | payer MEDICARE, OTHER | END 2021-08-13 16:54 | disposition home or self-care (01) | LOC: LAB 16:53 | DX: Z01.89 Encounter for other specified special examinations (principal) | CPT/HCPCS: 36415 ==

== ENCOUNTER 2021-08-31 13:33 | Outpatient (CLI) | payer MEDICARE, OTHER ==
--- NOTE | 2021-08-31 15:55 | CT Report ---
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 5 mm coronal and sagi ttal reformats were then performed. For radiation dose reduction, the following was used: automated exposure control, adjustment of mA and/or kV according to patient size. COMPARISON: None. FINDINGS: Image quality: Excellent. ABDOMEN: Lung bases: Lung bases are clear. Heart size is normal. Severe coronary artery calcifications. Solid organs: Liver and spleen are normal in size. Gallbladder contains multiple tiny gallstones. P ancreas is normal in contours. No adrenal nodules. Bilateral [place] kidneys are tiny atrophied kidne ys. There is a normal-sized transplant kidney in the left iliac fossa. Peritoneum and bowel: Unenhanced bowel loops demonstrate normal wall thickness and caliber. No free fluid or air. Nodes and vessels: No retroperitoneal or mesenteric adenopathy by size criteria. Aorta and inferior vena cava are normal in caliber. Relatively extensive calcifications. Miscellaneous: No ventral hernias. PELVIS: Genitourinary: Mild diffuse bladder wall thickening. Miscellaneous: No inguinal hernias or adenopathy. Uterus is surgically absent. Bones: No suspicious bony lesions. No vertebral body compression fractures. IMPRESSION: 1. Tiny atrophied bilateral kidneys, normal size transplant kidney. 2. Mild diffuse lateral wall thickening. 3. Severe coronary artery calcifications. 4. Advanced diffuse generalized atherosclerosis. 5. Cholelithiasis. Reviewed by: Marvin Villatoro MD on 08/31/2021 3:53 PM PST Approved by: Marvin Villatoro MD on 08/31/2021 3:53 PM PST Station ID: [id number]
== END 2021-08-31 13:34 | disposition home or self-care (01) ==
LOC: DI 13:33
PROVIDERS: ATTEND Internal Medicine Nephrology
DX: N18.4 Chronic kidney disease, stage 4 (severe) (principal); Z94.0 Kidney transplant status; N32.89 Other specified disorders of bladder; I25.10 Atherosclerotic heart disease of native coronary artery without angina pectoris; I70.8 Atherosclerosis of other arteries; K80.20 Calculus of gallbladder without cholecystitis without obstruction

== ENCOUNTER 2021-09-07 15:14 | Outpatient (CLI) | payer MEDICARE, OTHER | END 2021-09-07 15:15 | disposition home or self-care (01) | LOC: LAB 15:14 | PROVIDERS: ATTEND Internal Medicine | DX: Z01.89 Encounter for other specified special examinations (principal) | CPT/HCPCS: 36415 ==

== ENCOUNTER 2021-10-29 17:29 | Outpatient (CLI) | payer MEDICARE, OTHER | END 2021-10-29 17:30 | disposition critical access hospital (66) | LOC: EMS 17:29 | DX: S49.91XA Unspecified injury of right shoulder and upper arm, initial encounter (principal); W01.0XXA Fall on same level from slipping, tripping and stumbling without subsequent striking against object, initial encounter; Y92.008 Other place in unspecified non-institutional (private) residence as the place of occurrence of the external cause | CPT/HCPCS: A0425; A0427 ==

== ENCOUNTER 2021-10-29 17:46 | Emergency (ER) | payer MEDICARE, OTHER ==
[2021-10-29 18:11] VITALS: BP 187/98
[2021-10-29] MEDS ORDERED: HYDROmorphone 1 MG/ML CARPUJECT IVP STA (18:22)
--- NOTE | 2021-10-29 18:26 | ED Physician Documentation ---
History of Present Illness - Stated complaint Stated Complaint: GLF - Chief complaint Chief Complaint: Ext Problem - Additonal information Additional information: 66-year-old female presents emergency department for evaluation of acute right shoulder pain. She tripped on her bathrobe this afternoon falling forward onto her outstretched arm. She has pain with any movement of the shoulder especially at the proximal humerus. However she does have deformity anteriorly. She does have a history of renal transplant in 2006. She has unfortunately entered stage V kidney disease and has been told she is not a candidate for a kidney transplant again. Reports most recent GFR of 15 She is not anticoagulated. Did not strike her head. Did not lose consciousness. Denying headache, neck pain low back pain or hip pain Review of Systems Constitutional: denies: Fever, Chills Throat: reports: Reviewed and negative Cardiac: reports: Reviewed and negative Respiratory: reports: Reviewed and negative GI: reports: Reviewed and negative : reports: Reviewed and negative Musculoskeletal: reports: Joint pain Neurologic: reports: Reviewed and negative PD PAST MEDICAL HISTORY - Past Medical History Cardiovascular: None, Hypertension, High cholesterol Respiratory: None Endocrine/Autoimmune: Type 2 diabetes, HyPOthyroidism GI: None SAUSAGE LINKER: None : None HEENT: Chronic vision loss Psych: None Musculoskeletal: None Derm: Rosacea, Other - Past Surgical History Past Surgical History: Yes HEENT: Tonsil/Adenoidectomy - Present Medications Home Medications: Ambulatory Orders Medication Instructions Recorded Confirmed Acetaminophen 1,000 mg PO PRN PRN 08/17/18 07/19/20 Acyclovir 200 mg PO DAILY 08/17/18 10/29/21 Amoxicillin 2,000 mg PO PRN PRN 08/17/18 10/29/21 Aspirin [Adult Aspirin Regimen] 81 mg PO DAILY 08/17/18 10/29/21 Clobetasol Propionate/Emoll 15 gm TOP PRN PRN 08/17/18 10/29/21 [Clobetasol Emollient 0.05% Crm] Fexofenadine HCl [Jaylin Allergy] 180 mg PO DAILY 08/17/18 10/29/21 Lactulose 20 gm PO PRN PRN 08/17/18 10/29/21 Levothyroxine Sodium [Synthroid] 50 mcg PO DAILY 08/17/18 10/29/21 Liraglutide [Victoza 2-Viktor] 1.8 mg SQ DAILY 08/17/18 10/29/21 Mycophenolate Mofetil [Cellcept] 75 mg PO BID 08/17/18 10/29/21 Pravastatin [Pravachol] 80 mg PO DAILY PM 08/17/18 10/29/21 glipiZIDE [Glipizide] 2.5 mg PO DAILY 08/17/18 10/29/21 Carvedilol [Coreg] 6.25 mg PO DAILY 07/19/20 10/29/21 cycloSPORINE, MODIFIED [Gengraf] 25 mg PO TID 07/19/20 10/29/21 oxyCODONE [Roxicodone] 5 mg PO TID PRN #20 tablet 10/29/21 - Allergies Allergies/Adverse Reactions: Allergies Allergy/AdvReac Type Severity Reaction Status Date / Time No Known Drug Allergies Allergy Verified 07/19/20 15:27 - Social History Does the pt smoke?: No Smoking Status: Never smoker Does the pt drink ETOH?: No Does the pt have substance abuse?: No - Immunizations Immunizations are current?: Yes - POLST Patient has POLST: No PD ED PE EXPANDED - General General: Alert, In Pain - Cardiac Cardiac: Regular Rate, Radial strong equal, Pedal strong equal, Cap refill < 2 sec - Respiratory Respiratory: Clear to ausultation fouzia. No: Distress, Labored - Extremities Extremities: Right shoulder (Right arm held in flexion against her abdomen. Significant tenderness at the proximal humerus without ecchymosis. She does have some deformity of the anterior shoulder joint with significant tenderness. Will not allow any passive range of motion. Distal radial pulse 2+. Normal hand sensation ) Results - Vitals Vitals: Vital Signs - 24 hr 10/29/21 17:46 Temperature 36.4 C L Heart Rate 74 Respiratory 20 Rate Blood Pressure 187/98 H O2 Saturation 100 Oxygen O2 Source Room air - Rads (name of study) right shoulder Radiology: Final report received (Displaced and comminuted fracture of the right humeral neck) PD MEDICAL DECISION MAKING - ED course Complexity details: reviewed results, re-evaluated patient, d/w patient ED course: 66-year-old female here after a ground-level fall at home. Unfortunately sustained a proximal displaced humeral fracture. She was placed in a humeral immobilizer as well as a sling shoulder immobilizer. Limited prescription for oxycodone will be sent to the pharmacy. Advised to follow-up with Dr. Chen Emergent return precautions discussed. Departure - Departure Disposition: 01 Home, Self Care Clinical Impression: Humerus fracture Qualifiers: Encounter type: initial encounter Humerus Location: proximal Fracture type: closed Fracture alignment: displaced Laterality: right Condition: Stable Record reviewed to determine appropriate education?: Yes Instructions: ED Fx Upper Extr Ch Follow-Up: Paul Chen MD [Provider Admit Priv/Credential] - Prescriptions: oxyCODONE [Roxicodone] 5 mg PO TID PRN #20 tablet PRN Reason: Pain Comments: Josi I am so sorry that after your fall today you broke your proximal humerus. This is typically a fracture that is simply allowed to heal with time which will likely take 6 to 8 weeks. I do recommend icing your shoulder as it will help with pain. [place] Please discuss this ED visit with your primary care provider. They should make a referral for you to orthopedics. We have given you the name and phone number of Dr. Coello office. I would like you to be seen there and the next 1 to 2 weeks.
--- NOTE | 2021-10-29 18:43 | XRAY Report ---
PROCEDURE: Shoulder 2 View RT INDICATIONS: Ground-level fall TECHNIQUE: 2 views of the shoulder were acquired. COMPARISON: None. FINDINGS: Displaced and comminuted fracture of the humeral neck. IMPRESSION: Displaced and comminuted fracture of the right humeral neck. Reviewed by: Silvio Carmen MD on 10/29/2021 6:42 PM PDT Approved by: Silvio Carmen MD on 10/29/2021 6:42 PM PDT Station ID: [id number]
[2021-10-29] MEDS ORDERED: fentaNYL 100 MCG/2 ML VIAL IVP STA (19:46)
== END 2021-10-29 20:34 | disposition home or self-care (01) ==
LOC: EDUNIT# → EDSEX → ED 17:46
DX: S42.201A Unspecified fracture of upper end of right humerus, initial encounter for closed fracture (principal); W01.0XXA Fall on same level from slipping, tripping and stumbling without subsequent striking against object, initial encounter; I10 Essential (primary) hypertension; E11.9 Type 2 diabetes mellitus without complications; Z79.84 Long term (current) use of oral hypoglycemic drugs
CPT/HCPCS: 73030; 96374; 96375; 99283; J1170

== ENCOUNTER 2021-11-01 08:00 | Outpatient (CLI) | payer MEDICARE, OTHER ==
--- NOTE | 2021-11-01 12:23 | XRAY Report ---
PROCEDURE: Shoulder 3 View RT INDICATIONS: SHOULDER PAIN TECHNIQUE: 3 views of the shoulder were acquired. COMPARISON: 11/08/2021. FINDINGS: Bones: Again noted is comminuted, impacted and displaced proximal humeral shaft fracture with superio r and medial displacement of proximal humeral shaft in relation to humeral head. Fracture line is not ed extending to inferior base of greater tuberosity. No new fracture or dislocation. Right shoulder joint osteoarthritic changes are seen. No suspicious bony lesions. Visualized ribs appear intact. Soft tissues: No suspicious soft tissue calcifications. IMPRESSION: Comminuted, impacted and displaced right proximal humeral shaft fracture not significant ly changed in appearance and alignment compared to previous study. No new fracture or dislocation. Mo derate right shoulder joint osteoarthritis. Reviewed by: Timoteo Wong MD on 11/01/2021 12:22 PM PDT Approved by: Timoteo Wong MD on 11/01/2021 12:22 PM PDT Station ID: [id number]
== END 2021-11-01 23:59 | disposition home or self-care (01) ==
LOC: DI.WOS 08:00
PROVIDERS: ATTEND Orthopaedic Surgery
DX: S42.231D 3-part fracture of surgical neck of right humerus, subsequent encounter for fracture with routine healing (principal); M19.011 Primary osteoarthritis, right shoulder

== ENCOUNTER 2021-12-04 08:24 | Outpatient (CLI) | payer MEDICARE, OTHER ==
--- NOTE | 2021-12-04 15:13 | XRAY Report ---
PROCEDURE: Shoulder 2 View RT INDICATIONS: SHOULDER FRACTURE TECHNIQUE: 2 views of the shoulder were acquired. COMPARISON: X-ray shoulder 11/01/2021 FINDINGS: Bones: There is a displaced, comminuted femoral head and neck fracture with inferior subluxation at t he glenohumeral joint, unchanged compared to prior exam. No suspicious bony lesions. Visualized ribs appear intact. Soft tissues: No suspicious soft tissue calcifications. IMPRESSION: Stable appearance of comminuted humeral head and neck fracture without appreciable inter kaz change. Reviewed by: Christy Sinclair MD on 12/04/2021 3:11 PM PDT Approved by: Christy Sinclair MD on 12/04/2021 3:11 PM PDT Station ID: [id number]
== END 2021-12-04 23:59 | disposition home or self-care (01) ==
LOC: DI.WOS 08:24
PROVIDERS: ATTEND Orthopaedic Surgery
DX: S42.231A 3-part fracture of surgical neck of right humerus, initial encounter for closed fracture (principal)

== ENCOUNTER 2022-01-31 08:00 | Outpatient (CLI) | payer MEDICARE, OTHER ==
--- NOTE | 2022-01-31 16:54 | XRAY Report ---
PROCEDURE: Shoulder 2 View RT INDICATIONS: RIGHT SHOULDER FX TECHNIQUE: 2 views of the shoulder were acquired. COMPARISON: X-ray shoulder 12/04/2021 FINDINGS: Bones: There is a displaced comminuted needed humeral head and neck fracture. There is minimal inferi or subluxation at the glenohumeral joint space. Otherwise, no gross dislocation. Mild appearance of b ridging sclerosis is present. Humeral head is more medially angulated as compared to prior exam, whic h was more lateral. No suspicious bony lesions. Visualized ribs appear intact. Soft tissues: No suspicious soft tissue calcifications. IMPRESSION: Humeral head and neck fracture with slight medial angulation compared to prior exam. Reviewed by: Christy Sinclair MD on 01/31/2022 4:53 PM PDT Approved by: Christy Sinclair MD on 01/31/2022 4:53 PM PDT Station ID: [id number]
== END 2022-01-31 23:59 | disposition home or self-care (01) ==
LOC: DI.WOS 08:00
PROVIDERS: ATTEND Orthopaedic Surgery
DX: S42.231D 3-part fracture of surgical neck of right humerus, subsequent encounter for fracture with routine healing (principal)

== ENCOUNTER 2022-06-03 15:37 | Outpatient (CLI) | payer MEDICARE, OTHER ==
--- NOTE | 2022-06-04 10:50 | Ultrasound Report ---
PROCEDURE: Carotid Doppler Complete INDICATIONS: TIA TECHNIQUE: Color and pulse Doppler interrogation was performed of both carotid systems, with image documentation and velocity measurements. COMPARISON: None. FINDINGS: Right side: Brachial blood pressure: Not obtained. Common carotid artery peak systolic velocity: 38 cm/sec. Internal carotid artery peak systolic velocity: 87 cm/sec. Internal carotid artery end diastolic velocity: 20 cm/sec. External carotid artery peak systolic velocity: 526 cm/sec. ICA/CCA peak systolic ratio: 2.29 . Harris scale imaging description: Atheromatous plaque is present at the carotid bifurcation. Percent internal carotid artery stenosis: 50-69% stenosis . Vertebral artery: Flow direction is antegrade. Left side: Brachial blood pressure: 181/73 mm Hg. Common carotid artery peak systolic velocity: 60 cm/sec. Internal carotid artery peak systolic velocity: 156 cm/sec. Internal carotid artery end diastolic velocity: 33 cm/sec. External carotid artery peak systolic velocity: 166 cm/sec. ICA/CCA peak systolic ratio: 2.6 . Harris scale imaging description: Atheromatous plaque is present at the carotid bifurcation. Percent internal carotid artery stenosis: 50-69% stenosis. . Vertebral artery: Flow direction is antegrade. IMPRESSION: 1. 50-69% stenosis of the bilateral internal carotid arteries. 2. Markedly elevated velocities within the right external carotid artery suggesting high-grade, hemod ynamically significant stenosis. The estimate of stenosis included in the report of the imaging study was calculated using the NASCET method Reviewed by: Clara Baron MD on 06/04/2022 10:49 AM PDT Approved by: Clara Baron MD on 06/04/2022 10:49 AM PDT Station ID: [id number]
== END 2022-06-03 15:38 | disposition home or self-care (01) ==
LOC: DI 15:37
PROVIDERS: ATTEND Internal Medicine
DX: G45.9 Transient cerebral ischemic attack, unspecified (principal)
CPT/HCPCS: 93880

== ENCOUNTER 2022-10-30 14:37 | Outpatient (CLI) | payer MEDICARE, OTHER ==
--- NOTE | 2022-11-01 09:55 | Mammography Report ---
BILATERAL DIGITAL SCREENING MAMMOGRAM 3D/2D: 10/30/2022 CLINICAL: High risk screening. Routine screening. Comparison is made to exams dated: 07/18/2021 mammogram, 10/06/2020 mammogram, 07/19/2020 mammogram, mammogram, 03/10/2018 mammogram, and 01/28/2017 mammogram - [facility]. There are scattered areas of fibroglandular density in both breasts (category b / 25%-50% glandular t issue). No significant masses, calcifications, or other findings are seen in either breast. There has been no significant interval change. IMPRESSION: NEGATIVE There is no mammographic evidence of malignancy. A 1 year screening mammogram is recommended. Based on the Tyrer Cuzick model (a risk assessment model) the patients lifetime risk is 6.6% and her 10 year risk is 3.9%. According to the ACR, ACS, and NCCN guidelines, an annual breast MRI exam marly g with mammogram is recommended if the patients lifetime risk is 20% or greater. This exam was interpreted at Station ID: [id number]. NOTE: For mammograms, a report in lay terms will be sent to the patient. Approximately 15% of breast malignancies will not be visualized mammographically. In the management of a palpable breast mass, a negative mammogram must not discourage biopsy of a clinically suspicious lesion. Electronically Signed By: Gigi yee/adi:10/31/2022 10:15:30 letter sent: No_Letter ACR BI-RADS Category 1: Negative 3341F PARENCHYMAL PATTERN: (A) - The breast(s) demonstrate(s) scattered fibroglandular densities. BI-RADS CATEGORY: (1) - 1 Mammogram 20231031 1 year screening LATERALITY: (B)
== END 2022-10-30 14:38 | disposition home or self-care (01) ==
LOC: DI.N 14:37
DX: Z12.31 Encounter for screening mammogram for malignant neoplasm of breast (principal)

== ENCOUNTER 2023-12-10 10:25 | Outpatient (CLI) | payer MEDICARE, OTHER ==
--- NOTE | 2023-12-10 21:38 | XRAY Report ---
PROCEDURE: Shoulder 2+V RT INDICATIONS: NECK OF RIGHT HUMERUS FRACTURE TECHNIQUE: 4 views of the shoulder were acquired. COMPARISON: 03/26/2022. FINDINGS: Bones: Old healed fracture involving proximal humeral shaft/surgical neck is seen with chronic-appea ring deformity. No acute fracture or dislocation. Mild to moderate acromioclavicular joint and gleno humeral joint osteoarthritic changes are seen. No suspicious bony lesions. Visualized ribs appear in tact. Soft tissues: No suspicious soft tissue calcifications. The visualized lungs are within normal limi ts. IMPRESSION: Old healed right proximal humeral shaft/surgical neck fracture with chronic deformity. No acute fract ure or dislocation. Mild to moderate right shoulder joint osteoarthritis. Reviewed by: Timoteo Hollingsworth MD on 12/10/2023 9:37 PM PDT Approved by: Timoteo Hollingsworth MD on 12/10/2023 9:37 PM PDT Station ID: [id number]
== END 2023-12-10 10:26 | disposition home or self-care (01) ==
LOC: DI 10:25
PROVIDERS: ATTEND Orthopaedic Surgery
DX: M19.011 Primary osteoarthritis, right shoulder (principal); M21.821 Other specified acquired deformities of right upper arm

== ENCOUNTER 2024-02-25 14:26 | Outpatient (CLI) | payer MEDICARE, OTHER ==
--- NOTE | 2024-02-25 16:55 | XRAY Report ---
PROCEDURE: Chest 2V INDICATIONS: COUGH TECHNIQUE: 2 views of the chest were acquired. COMPARISON: Chest radiograph on July 19, 2020. Right shoulder radiograph on December 10, 2023. FINDINGS: Surgical changes and devices: None. Lungs and pleura: No pleural effusions or pneumothorax. Lungs are clear. Mediastinum: Mediastinal contours appear normal. Heart size is normal. Bones and chest wall: No suspicious bony lesions. Overlying soft tissues appear unremarkable. Mild degenerative changes of the spine. Healed fracture deformity of the right humeral neck/proximal shaft , better evaluated on radiograph dated December 10, 2023. IMPRESSION: 1.No acute cardiopulmonary process. 2.Healed fracture deformity of the right humeral neck/proximal shaft, better evaluated on radiograph dated December 10, 2023. Reviewed by: Andrae Guevara MD on 02/25/2024 4:53 PM PDT Approved by: Andrae Guevara MD on 02/25/2024 4:53 PM PDT Station ID: [id number]
== END 2024-02-25 14:27 | disposition home or self-care (01) ==
LOC: DI.N 14:26
PROVIDERS: ATTEND Internal Medicine
DX: R05.9 Cough, unspecified (principal); N18.5 Chronic kidney disease, stage 5; S42.291D Other displaced fracture of upper end of right humerus, subsequent encounter for fracture with routine healing